=== PATIENT | male | born 1950 | race Two or more races ===

== ENCOUNTER → 2024-10-16 11:37 | Emergency (ER) | payer MEDICARE, OTHER, SELFPAY ==
[2024-10-16 11:39] VITALS: BP 126/90
[2024-10-16 13:06] LABS: Urine Character Clear (Clear)
[2024-10-16 13:12] LABS: Hematocrit 46.9 % (39.0-52.0); Hemoglobin 16.0 g/dL (13.0-18.0); Mean Corp Hgb Conc. 34.1 g/dL (33.0-37.0); Mean Corpuscular Volume 94.7 fL (80.0-94.0); Nucleated Red Blood Cells % 0 % (-); Platelet Count 183 10^3/uL (130-400); Red Cell Dist. Width 12.5 % (11.5-14.5)
--- NOTE | 2024-10-16 13:13 | ED.GENMED ---
History of Present Illness
General
Chief Complaint: Flank Pain
Source: patient
Time Seen by Provider: 10/16/24 12:41
History of Present Illness
History of Present Illness:
74-year-old male with past medical history of xve-kjwngky-rrrifjtuu diabetes, previous kidney stones presenting to the emergency department for evaluation of sudden onset left flank pain that began around 930 this morning described to be a constant
sharp pain accompanied with nausea and vomiting, most of his symptoms seem to now be improved. Patient did not take anything for symptoms prior to arrival. At time of my exam patient states his pain is very mild and is currently declining anything
for the symptoms. He notes that the pain presently feels similar to previous episodes of kidney stones in the past. He denies any fevers, urinary symptoms, bowel changes or any other concerns presently. Does not follow with urology normally.
Past History
Past History
ED Past Medical History: NIDDM and Other (Kidney stones)
ED Past Surgical History: Orthopedic
Social History
Tobacco: Non-smoker
Alcohol: Occasional
Drug: None
Personal:
Living: with family
Review of Systems
Review of Systems
All Other Systems: ROS reviewed and negative except as documented in HPI and ROS
Phy Exam
Physical Exam
Physical Exam:
GENERAL: Alert , in no apparent distress
EYE: clear conjunctiva b/l
HEAD: NCAT
ENT: mmm.
CARDIAC: Regular rate and rhythm .
LUNGS: Clear breath sounds bilaterally, no acute respiratory distress, no wheezes/rales/rhonchi
ABDOMEN: Soft, without focal tenderness, no r/g, mild left flank tenderness
NEUROLOGICAL: Alert and oriented
SKIN: Warm and dry, skin intact.
MUSCULOSKELETAL: No edema, well perfused.
PSYCH: Normal and appropriate interaction.
Scores
Heart Failure Risk
Heart Failure Risk Score: Not Applicable
Heart Score for Chest Pain Patients
STEMI patient?: Not applicable
Withdrawal Assessment of Alcohol
Withdrawal Assessment Completed?: Not applicable
Course
Orders/Labs/Results
Orders:
Orders
10/16/24 12:43
CT Abd/pel Without Iv Or Oral Urgent
Comment:
Reason For Exam: left flank pain, hx stones
10/16/24 12:44
UA Reflex to Culture [Urinalysis Reflex To Culture] Urgent
Date Specimen was Collected: 10/16/24
Time Specimen was Collected: 12:37
Urine Microscopic Reflex Cult Urgent
10/16/24 13:02
Complete Blood Count/With Diff Urgent
Comprehensive Metabolic Panel Urgent
Lipase Urgent
10/16/24 13:12
0.9% Sodium Chloride 1000 ml [Nss] 1,000 ml IV BOLUS
Ketorolac [Toradol] 15 mg IV NOW STA
Ondansetron Injectable [Zofran] 4 mg IV NOW STA
Abnormal Lab Results
10/16/24 10/16/24
12:44 13:02
MCV 94.7 H fL
(80.0-94.0)
MCH 32.3 H pg
(27.0-31.0)
MPV 10.8 H fL
(7.4-10.4)
Abs Immat Gran (auto) 0.1 H 10^3/uL
(0-0.05)
Absolute Neuts (auto) 7.4 H 10^3/uL
(1.4-6.5)
Absolute Lymphs (auto) 0.6 L 10^3/uL
(1.2-3.4)
Immature Gran % 0.6 H %
(0-0.5)
Neutrophils % 89.0 H %
(42.2-75.2)
Lymphocytes % 6.9 L %
(20.5-51.1)
Chloride 108 H mmol/L
(98-107)
BUN 27 H mg/dl
(9-20)
Creatinine 1.4 H mg/dL
(0.7-1.3)
Glucose 233 H mg/dl
(70-99)
Urine Ketones 2+ A
(Negative)
Ur Occult Blood Reflex 3+ A
(Negative)
Urine RBC 21-25 A /HPF
(0-2)
Urine Glucose 2+ A
(Negative)
Urine Albumin (Reflex) 2+ A
(Neg - Trace)
10/16/24 13:02
10/16/24 13:02
Vital Signs
Initial and Last Documented VS:
Initial Vital Signs
Temp Pulse Resp BP Pulse Ox
97.9 F 73 18 126/90 98
10/16/24 11:39 10/16/24 11:39 10/16/24 11:39 10/16/24 11:39 10/16/24 11:39
Last Documented Vital Signs
Temp Pulse Resp BP Pulse Ox
97.9 F 81 16 140/71 98
10/16/24 11:39 10/16/24 14:24 10/16/24 14:24 10/16/24 14:24 10/16/24 14:24
MDM/Problems Addressed
Differential Diagnosis Includes:
Renal/ureteral colic
Ureterolithiasis
Pyelonephritis
Cystitis
Musculoskeletal back pain
Shingles
Less concern for vascular etiology
Pancreatitis
Diverticulitis
MDM/Problems Addressed:
74-year-old male presenting to the ER for evaluation of sudden onset of left-sided flank pain that began around 9:30 AM, did anything for pain prior to arrival but notes pain is currently much more tolerable. Based off presentation and description
of symptoms I suspect renal/ureteral colic/ureterolithiasis is the most likely diagnosis. Will obtain labs, urine and CT imaging. Disposition pending
*Radiology
Radiology exam reviewed: radiology read reviewed (2 mm stone at the UVJ)
*Pulse Oximetry
SaO2: 98
Oxygen Mode of Delivery: Room air
Patient hypoxic: no
*Critical Care Note
Total Time (30-74mins, 75-104mins- exclusive of procedures): Not Applicable
Comment
Comment:
Shortly after my exam, informed by nursing staff that patient now having return pain and nausea. 15 mg of Toradol, 4 mg Zofran and IV fluids ordered
Patient Management
Escalation/DeEscalation of care consider admission/obs:
Patient's pain much improved following medications here. He does have a 2 mm stone at the left UVJ at feels comfortable being discharged home. Information for urology. Prescriptions for Flomax, Percocet and Zofran sent to pharmacy. Aware of
return precautions to the ER. Stable for discharge.
ED Attending Note
-
Portions of this chart may have been created with voice recognition software.� Occasional wrong word or��sound alike� substitutions may have occurred due to the inherent limitations of voice recognition software.
Discharge Plan
Departure
Patient Disposition: Home (Routine Discharge)
Date of Disposition: 10/16/24
Time of Disposition: 14:05
Patient with high blood pressure during this ER visit?: No
Discharge Problem:
Ureterolithiasis
Instructions: Kidney Stones (DC)
Prescriptions:
New
tamsulosin [Flomax] 0.4 mg capsule
0.4 mg PO DAILY Qty: 10 0RF
oxycodone-acetaminophen [Percocet] 5-325 mg tablet
1 tab PO Q6HPRN PRN (Reason: pain) Qty: 5 0RF
ondansetron 4 mg tablet,disintegrating
4 mg PO TIDPRN PRN (Reason: nausea/vomiting) Qty: 10 0RF
Referrals:
Bobby Cross DO [Family Provider, Family Practice]
Zac Georges MD [Active, Urology]
Referral Note: Call for appointment
Interventions
Interventions:
*Risk Screen - Suicide Last Done: 10/16/24 11:39
*General Assessment Last Done: 10/16/24 13:21
*Neglect/Abuse Screening Last Done: 10/16/24 11:39
*ED- Fall Risk Assessment Last Done: 10/16/24 13:21
*ED COVID-19 Vaccine History Last Done: 10/16/24 13:21
ZV-Iikizd-Txyxhgzmvn Assessment Last Done: 10/16/24 13:21
ED-Male Genitourinary Assessment Last Done: 10/16/24 13:21
Discharge Date and Time
Print Language: INDONESIAN
[2024-10-16] MEDS: TORADOL 15 MG IV (13:14)
[2024-10-16] MEDS: ZOFRAN 4 MG IV (13:14)
[2024-10-16] MEDS: NSS 1000 IV (13:15)
[2024-10-16 13:48] LABS: ALT (SGPT) 39 U/L (0-50); AST (SGOT) 41 U/L (17-59); Albumin 5.0 g/dl (3.5-5.0); Alkaline Phosphatase 71 U/L (38-126); Blood Urea Nitrogen 27 mg/dl (9-20); Calcium 9.8 mg/dl (8.4-10.2); Carbon Dioxide 23 mmol/L (22-30); Chloride 108 mmol/L (98-107); Glucose 233 mg/dl (70-99); Lipase 146 U/L (23-300); Potassium 4.8 mmol/L (3.5-5.1); Sodium 139 mmol/L (135-145); Total Protein 8.2 g/dl (6.3-8.2); eGFR 52.41
[2024-10-16 14:24] VITALS: BP 140/71
[2024-10-16 14:36] LABS: Urine Red Blood Cell 21-25 /HPF (0-2)
[2024-10-16 14:38] LABS: Urine White Cell 0-2 /HPF (0-5)
== END | disposition home or self-care (01) ==
LOC: EMR 11:37
PROVIDERS: Physician Assistant Medical; EMERGENCY PHYSICIAN Student in an Organized Health Care Education/Training Program; FAMILY PHYSICIAN Family Medicine Adult Medicine
DX: N20.1 Calculus of ureter (principal); R11.2 Nausea with vomiting, unspecified; E11.9 Type 2 diabetes mellitus without complications; Z87.442 Personal history of urinary calculi
CPT/HCPCS: 99284; 96374; 96375; 96361; 74176; 80053; 81003; 81015; 83690; 85025